=== PATIENT | male | born 1985 | race Caucasian/White ===

== ENCOUNTER 2018-10-30 07:43 | Outpatient (CLI) | payer OTHER ==
[2018-10-30 18:22] LABS: Anion Gap 13 mmol/L (10-20); BUN (Urea Nitrogen) 12 mg/dL (8.9-20.6); Calc. Creatinine Clearance 0 mL/min (70-130); Calcium 9.4 mg/dL (7.8-10.44); Carbon Dioxide 27 mmol/L (22-29); Chloride 105 mmol/L (98-107); Estimated GFR-MDRD Greater than 90; Glucose 91 mg/dL (70-105); Potassium 4.1 mmol/L (3.5-5.1); Sodium 141 mmol/L (136-145)
== END 2018-10-30 07:44 | disposition home or self-care (01) ==
LOC: LABBT 07:43
PROVIDERS: ATTEND Surgery
DX: Z01.812 Encounter for preprocedural laboratory examination (principal); K40.20 Bilateral inguinal hernia, without obstruction or gangrene, not specified as recurrent
CPT/HCPCS: 80048

== ENCOUNTER 2018-11-13 06:57 | Day surgery (SDC) | payer OTHER ==
[2018-10-30 17:04] VITALS: BMI 27.7
[2018-11-13] MEDS ORDERED: CEFAZOLIN 2 GM/50 ML BAG ONE (08:24)
[2018-11-13] MEDS ORDERED: Bupivacaine HCl 0.25%/Epi 0.0005/PF 10 ML VIAL FS ONE (09:07)
[2018-11-13] MEDS ORDERED: Fentanyl 250 MCG/5 ML VIAL ONE (09:11)
[2018-11-13] MEDS ORDERED: Glycopyrrolate 0.2 MG/ML 5 ML SYRINGE ONE ×2 (10:12→16:24)
[2018-11-13] MEDS ORDERED: Atropine Sulfate 0.4 mg/1 ml Vial ONE ×2 (10:12→16:24)
[2018-11-13] MEDS ORDERED: Ondansetron PF 4 MG/2 ML Vial ONE ×2 (10:20→16:24)
[2018-11-13] MEDS ORDERED: Fentanyl 100 MCG/2 ML VIAL ONE ×2 (11:54→12:14)
--- NOTE | 2018-11-13 12:15 | RAD ---
ABDOMEN 1 VIEW: History Needle localization during surgery. FINDINGS: Laparoscopic trocar and hemostat overlie the mid abdomen. There is evidence of intraperitoneal gas c onsistent with surgery. Thin linear curved needle projects over the right lower quadrant. The left side of the abdomen and the upper abdomen are excluded from the image. POS: STEVIE
[2018-11-13] MEDS ORDERED: HYDROcodone/Acetaminophen 5/325 mg Tablet ONE (12:59)
[2018-11-13] MEDS ORDERED: Morphine 2 MG/ML SYRINGE ONE (14:51)
[2018-11-13] MEDS ORDERED: Dexamethasone 20 MG/5 ML VIAL ONE ×2 (16:24)
[2018-11-13] MEDS ORDERED: PHENYLEPHRINE-NS 100 MCG/ML 10 ML SYRINGE ONE (16:24)
[2018-11-13] MEDS ORDERED: Lidocaine 1% PF 5 ML VIAL ONE (16:24)
[2018-11-13] MEDS ORDERED: Ketorolac Tromethamine 30 MG/ML VIAL ONE (16:24)
[2018-11-13] MEDS ORDERED: ePHEDrine/0.9% NaCl/PF SYRINGE 50 mg/10 ml ONE (16:24)
[2018-11-13] MEDS ORDERED: Rocuronium Bromide 10 MG/ML (10ML VIAL) ONE (16:24)
[2018-11-13] MEDS ORDERED: PROPOFOL 200 MG/20 ML VIAL ONE (16:24)
--- NOTE | 2018-11-14 13:55 | OP ---
DATE OF PROCEDURE: 11/13/2018 PREOPERATIVE DIAGNOSIS: Bilateral inguinal hernia. POSTOPERATIVE DIAGNOSIS: Bilateral inguinal hernia. PROCEDURE PERFORMED: [facility] laparoscopic robotic bilateral inguinal hernia repair with mesh, 3DMax large. ANESTHESIA: General. ESTIMATED BLOOD LOSS: Minimal. COMPLICATIONS: None. SPECIMEN: None. FINDINGS: Bilateral inguinal hernia. DESCRIPTION OF PROCEDURE: The patient was taken to the operating room and laid supine on the operating room table. After general anesthetic was obtained, the abdomen was shaved, prepped, and draped in a sterile fashion. A curved incision was made above the umbilicus. Cautery was dissected down to and score the fascia. Abdominal cavity was entered bluntly with a Misa clamp. An 11 mm balloon long trocar was placed. High-flow pneumoperitoneum was obtained. Left and right abdominal 8 mm assist robotic ports were placed under direct visualization. The patient was placed in Trendelenburg position. All ports were docked to the robot. The peritoneum was opened in the bilateral groin exposing the preperitoneal space. The space was bluntly dissected to pubic tubercle medially, into the anterior superior iliac crest laterally. The shelving edge of inguinal ligament was fully exposed. The bilateral indirect inguinal hernias were dissected back out of the indirect hernia defect all the way up high onto the peritoneum. A bilateral 3DMax large mesh was brought into the sterile field medial aspects were placed over the pubic tubercles bilaterally and the mesh was laid out laterally to cover the indirect, direct, and femoral areas. 2-0 Vicryl was used to sew the mesh to the pubic tubercle medially and to the posterior fascia laterally. No sutures were placed in the triangle . The peritoneum was reapproximated using 3-0 Stratafix. All port sites were infiltrated using local anesthetic. All ports were removed under camera visualization. Pneumoperitoneum was let down. PDS was used to close the fascial defect above the umbilicus. All incisions were irrigated and closed using 4-0 Monocryl and Dermabond. The patient was sent to Recovery in stable condition. All instrument counts, needle counts, and lap counts were correct. Job ID: [id number]
== END 2018-11-13 17:10 | disposition home or self-care (01) ==
LOC: SDC 06:57
PROVIDERS: ATTEND Surgery
PROC: 0YUA4JZ Supplement Bilateral Inguinal Region with Synthetic Substitute, Percutaneous Endoscopic Approach (ICD-10-PCS; principal; 2018-11-13)
DX: K40.20 Bilateral inguinal hernia, without obstruction or gangrene, not specified as recurrent (principal); Z79.899 Other long term (current) drug therapy; Z90.49 Acquired absence of other specified parts of digestive tract
CPT/HCPCS: 51798; 74018; C1781; J0461; J1100; J1885; J2001; J2270; J2405; J2704; J3010

== ENCOUNTER 2019-08-20 16:26 | Outpatient (CLI) | payer OTHER | END 2019-08-20 16:27 | disposition home or self-care (01) | LOC: CTENTCT 16:26 | PROVIDERS: ATTEND Student in an Organized Health Care Education/Training Program | DX: R22.0 Localized swelling, mass and lump, head (principal) | CPT/HCPCS: 70486 ==